=== PATIENT | male | born 1950 | race Caucasian/White ===

== ENCOUNTER 2016-02-24 03:41 | Emergency (ER) | payer MEDICARE, OTHER ==
[2016-02-24] MEDS ORDERED: Norepinephrine in D5W infusion 8,000 MCG/250 ML BAG IV SCH (04:00)
[2016-02-24] MEDS ORDERED: SODIUM BICARBONATE 150 MEQ in WATER 1,000 ML IV ONE (04:00)
[2016-02-24] MEDS ORDERED: LORAZEPAM 2 MG/ML VIAL ONE (04:15)
--- NOTE | 2016-02-24 04:29 | EDPRACDOC ---
- General Information Chief Complaint: Altered Mental Status Stated Complaint: CPR Time Seen by Provider: 02/24/16 04:26 Home Medications: Home Medications Budesonide/Formoterol Fumarate [Symbicort 160-4.5 Mcg Inhaler] 1 puff INH BID Carvedilol [Coreg] 25 mg PO BID 12/27/12 Magnesium Oxide [Mag-Ox] 400 mg PO BID 12/27/12 Multivit-Min/FA/Lycopene/Lut [Centrum Silver Tablet] 1 tab PO DAILY 12/27/12 Nitroglycerin [Nitrostat] 0.4 mg SL Q5MX3 PRN 12/27/12 Humkr-7-Rmbp Ethyl Esters [Lovaza ([place]-3 Acid Ethyl Esters)] 1,000 mg PO BID 12/27/12 Alprazolam [Xanax] 0.5 mg PO Q6H PRN 06/13/13 Amiodarone [Cordarone, Pacerone] 200 mg PO DAILY 06/13/13 Fenofibrate,Micronized [Lofibra] 134 mg PO DAILY 06/13/13 Insulin Detemir [Levemir] 55 units SQ BID 06/13/13 Isosorbide Mononitrate [Imdur] 60 mg PO DAILY 06/13/13 Metolazone [Zaroxolyn] 5 mg PO .Thursday07/12/13 POTASSIUM CHLORIDE Tablet [K-DUR 20 mEq Tablet*] 20 meq PO BID #60 tablet Acetaminophen Ex Str Tablet [TYLENOL EXTRA STRENGTH Tablet] 1,000 mg PO Q6H Insulin Aspart [Novolog] 0 units SQ .SSI 01/05/14 Levothyroxine Sodium [Synthroid] 75 mcg PO DAILY 01/05/14 Pantoprazole Sodium [Protonix] 40 mg PO BID #60 tab 01/11/14 Bupropion HCl [Wellbutrin Sr] 150 mg PO BID 04/18/15 Clopidogrel Bisulfate [Plavix] 75 mg PO DAILY 04/18/15 Gabapentin [Neurontin] 100 mg PO TID PRN 04/18/15 Ipratropium [Atrovent Hfa] 1 puff INH TID PRN 04/18/15 Tramadol HCl [Ultram] 50 mg PO Q8H PRN 04/18/15 Albuterol/Ipratropium Neb [Duoneb] 3 ml NEB Q6H #120 nebu 04/20/15 Furosemide [Lasix] 80 mg PO DAILY #60 tablet 04/20/15 Levofloxacin [Levaquin] 750 mg PO DAILY #5 tablet 04/20/15 Prednisone 10 mg PO DAILY #30 tab.ds.pk 04/20/15 Allergies/Adverse Reactions: Allergies Allergy/AdvReac Type Severity Reaction Status Date / Time No Known Allergies Allergy Verified 04/18/15 10:00 - 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 CON FUSED AND FELL. FOUND BLOOD SUGAR TO BE 40S. FAMILY TRIED TO GIVE ORANGE JUICE. WENT UNRESPONSIVE. FAMILY STARTED CPR. STENTS- LAST 2011 Symptoms began: Suddenly Duration: Since Onset Symptoms Currently: Reports: Still Present Altered Quality: Reports: Decreased Alertness Altered Severity: Reports: Severe, Unresponsive Relevant History: Reports: Diabetes, Hypoglycemia Prehospital: Reports: EMT Blood Glucose Result: 150 Other History: EMS GAVE D50 AND NOTED INCREASING BLOOD SUGAR. LOST PULSES AND GAVE EPINEPHRINE WITH CHEST COMPRESSIONS. ON ARRIVAL CONTINUED COMPRESSIONS WITH EPINEPHRINE AND AMPS OF BICARB ED Past Medical History - History Reviewed Yes Nurses notes reviewed and agree except as marked Travel Outside of [place] in the Last 3 Months?: No - Patient Medical History Neurological History: Denies: Myasthenia Gravis Cardiac History: Reports: Coronary Artery Disease, Hypertension, Congestive Heart Failure, Heart Attack (2), Cardiac Catheterization, Hypercholesterolemia, Valvular Heart Disease. Denies: Atrial Fibrillation, CABG, Pacemaker, Cardiomyopathy Respiratory History: Reports: COPD, Pneumonia, Emphysema. Denies: Asthma, Chronic Bronchitis, Pulmonary Embolism GI/ History: Reports: Renal Failure, Kidney Stones, Gastroesophageal Reflux. Denies: Renal Disease, Kidney (Renal Surgery), Urinary Tract Infection, Liver Failure, Ulcer, Pancreatitis Musculoskeletal History: Reports: Osteoarthritis. Denies: Arthritis, Gout, Rheumatoid Arthritis Psychological History: Reports: Depression, Anxiety. Denies: Schizophrenia, Bipolar Disorder, Substance Use Disorder Systemic History: Reports: Diabetes. Denies: Cancer, Anemia, Hyperthyroidism, Hypothyroidism, Lupus Surgical History: Reports: Cardiac Catheterization, Other (lower back). Denies : CABG, Hysterectomy, Angioplasty, Hernia Surgery, Tonsillectomy/Adnoidectomy - Family Medical History Reports: Hypertension, Diabetes, Cancer, Cardiac Disorders. Denies: Stroke - Social Medical History Smoking Status: Light tobacco smoker (less than 5/day) Social History: Denies: Substance Use Disorder EDM Review of Systems - Review of Systems ROS Unobtainable: Yes Review of systems cannot be obtained due to the patient's medical condition - Physical Exam Constitutional: Decreased Consciousness, Other (UNRESPONSIVE) Oriented to: Unable to Test Last recorded Vital Signs: Oxygen Pulse Oxygen Saturation O2 Device Oxygen Flow Rate Fraction of Inspired Oxygen ( FIO2) - HEENT Head: Normal Eye Exam: Other (PUPILS SLUGGISH AND DILATED, PROPTOSIS PRESENT) Oropharynx: Other (PATIENT HAS KURT AIRWAY THAT WAS LEAKING- ETT PLACED INSTEAD) Tympanic Membrane: Normal ENT EAC: Normal TMJ: Normal Nose: Bleeding Neck: Normal - Respiratory/Cardiovascular Respiratory: Diminished, Wheezes Cardiovascular: Other (PULSELESS ON ARIVAL) - GI Auscultation: Normal Palpation: Tense Tenderness: Other (DISTENDED) Rectal Exam: Normal - Bladder: Normal - Musculoskeletal Back: Normal Extremities: Other (COOL, MOTTLED) - Integumentary Skin: Cool, Mottling Lymphatics: Normal - Neurologic Memory Impaired: Unable to Test Motor Function: Unable to Test Cranial Nerve: Unable to Test Cerebellar: Unable to Test ED Procedures - Central Line Indication: Hypotension, No peripheral access Line Procedure: Betadine prep Equipment used during procedure: Hat and Mask, Sterile Gown, Sterile Gloves Line Lumen: triple Central Line Postion: femoral (L) Line Position approached and secured by standard fashion: sutured, good blood return Complications: none - Intubation Indication: Respiratory Insufficiency, Altered Mental Status, Airway Protection Intubation Date: 02/24/16 Time of Intubation: 04:00 Pre-oxygenation completed: Yes Number of Attempts: 1 Storcz Used: Yes Intubation Method: Oral Endotracheal Utilized: Mac4 Blade Tube Size (cm): 7.5 Position at Lip: 23 ETCO2 Detector Positive: Yes Breath Sounds after Intubation: equal Intubation Complications: no complications Post Intubation Procedure CXR ordered?: Yes - Differential Diagnosis Sepsis, Other (HYPERKALEMIA, UREMIA) - Re-evaluation Re-evaluation 1 Re-evaluation Time: 04:33 (PATIENT HAD SPONTANEOUS RETURN OF PULSE. B/P 160 SYTOLIC- UNRESPONSIVE) - Results 02/24/16 03:44 02/24/16 03:44 - EKG EKG #1 EKG Time: 03:57 -: Yes EKG interpreted by me Rate: bpm: 95 [place]: Normal Rhythm: Afib, PVCs Block: RBBB Hypertrophy: None ST: Normal ED Critical Care Note - Critical Care Note Total Time (mins): 90 - Departure Yes I personally saw and evaluated the patient. Disposition: Trans. to Other Hospital ([facility]) Condition: Critical Final Diagnosis: Metabolic acidosis, Cardiopulmonary arrest, Signs of return of spontaneous circulation Altered mental status Qualifiers: Altered mental status type: coma Coma depth: [place] coma 3-8 Coma timing: at arrival to emergency department Qualified Code(s): R40.2432 - [place] coma scale score 3-8, at arrival to emergency department Left upper lobe pneumonia Qualifiers: Pneumonia type: due to unspecified organism Qualified Code(s): J18.1 - Lobar pneumonia, unspecified organism Education/Counseling Given To: Patient Education/Counseling Given Regarding: Diagnosis, Treatment, Prognosis Referrals: None,No Provider [Primary Care Provider] - One Week Decision to Transfer Time: 05:15 - Physician Consulted Other Time Called: 05:15 Provider Called: DR HAYS (CCU AT [facility]- DO NOT COOL. 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
[2016-02-24 04:34] LABS: MPV 8.4 fL (7.4-10.4)
[2016-02-24 04:40] LABS: ALLEN'S TEST PASS
[2016-02-24 04:41] LABS: ABG Draw Site Right Radial
[2016-02-24] MEDS ORDERED: ALBUTEROL 0.083% 3 ML NEB NEB ONE (04:43)
[2016-02-24 04:44] LABS: PCO2 > 124.0 mmHg (35-45)
[2016-02-24 04:45] LABS: PARTIAL THROMB. TIME 37.1 SEC (22-35); PT-INR 1.1
[2016-02-24 04:46] LABS: MODE AC 14 RATE
[2016-02-24 04:48] LABS: BLOOD UREA NITROGEN 48 MG/DL (9-20); CALCIUM 9.5 MG/DL (8.4-10.2); CALCULATED OSMOLALITY 300 MOs/Kg (270-290); CHLORIDE 98 mEq/L (98-107); GLUCOSE 249 MG/DL (70-99); SODIUM LEVEL 145 mEq/L (137-146); TOTAL PROTEIN 7.9 G/DL (6.3-8.2)
[2016-02-24] MEDS ORDERED: ALBUTEROL 6.7 GM MDI INH ONE (04:53)
[2016-02-24 05:09] LABS: SEG NEUTROPHIL 46 % (45-76)
[2016-02-24 05:16] VITALS: BMI 27.7
--- NOTE | 2016-02-24 05:21 | DIRPT ---
CLINICAL DATA: CPR in progress. Endotracheal tube placement. Initial encounter. EXAM: PORTABLE CHEST 1 VIEW COMPARISON: Chest radiograph performed 10/23/2015 FINDINGS: The patient's endotracheal tube is seen ending 6 cm above the caprice. An enteric tube is noted extending below the diaphragm. Patchy left apical and bilateral central airspace opacity may reflect interstitial edema or possibly pneumonia. Underlying vascular congestion is noted. No definite pleural effusion or pneumothorax is seen. The cardiomediastinal silhouette is mildly enlarged. No acute osseous abnormalities are identified. IMPRESSION: 1. Endotracheal tube seen ending 6 cm above the caprice. 2. Patchy left apical and bilateral central airspace opacities may reflect interstitial edema or possibly pneumonia. Underlying vascular congestion and mild cardiomegaly. Electronically Signed By: Aravind Nesbitt M.D. On: 02/24/2016 05:18
[2016-02-24 06:24] LABS: ALLEN'S TEST PASS; BEb 4.7 (+/- 2); TCO2 39.6 MMOL/L (23-27)
[2016-02-24 06:26] LABS: ABG Draw Site Right Radial
[2016-02-24 06:28] LABS: MODE AC 20 RATE
[2016-02-24] MEDS ORDERED: LORAZEPAM 2 MG/ML VIAL IV ONE (06:30)
[2016-02-24] MEDS ORDERED: CEFTRIAXONE 1 GM in D5W 100 ML IV ONE (06:46)
[2016-02-24] MEDS ORDERED: AZITHROMYCIN 500 MG in D5W 250 ML IV ONE (06:46)
[2016-02-24] MEDS ORDERED: NS 1,000 ML IV ONE ×2 (06:46→07:46)
--- NOTE | 2016-02-24 07:44 | DIRPT ---
CLINICAL DATA: Acute onset of altered mental status. CPR in progress. Patient became unresponsive. Initial encounter. EXAM: CT HEAD WITHOUT CONTRAST TECHNIQUE: Contiguous axial images were obtained from the base of the skull through the vertex without intravenous contrast. COMPARISON: CT of the head performed 09/06/2013 FINDINGS: There is no evidence of acute infarction, mass lesion, or intra- or extra-axial hemorrhage on CT. The posterior fossa, including the cerebellum, brainstem and fourth ventricle, is within normal limits. The third and lateral ventricles, and basal ganglia are unremarkable in appearance. The cerebral hemispheres are symmetric in appearance, with grossly normal min-white differentiation. No mass effect or midline shift is seen. There is no evidence of fracture; visualized osseous structures are unremarkable in appearance. Mild bilateral proptosis is noted. There is opacification of the maxillary sinuses and sphenoid sinus. The frontal sinuses and mastoid air cells are well-aerated. No significant soft tissue abnormalities are seen. IMPRESSION: 1. No acute intracranial pathology seen on CT. 2. Mild bilateral proptosis noted. 3. Opacification of the maxillary sinuses and sphenoid sinus. Electronically Signed By: Aravind Nesbitt M.D. On: 02/24/2016 07:41
[2016-02-24 08:38] VITALS: BP 144/91; PULSE 85; TEMP 95.7
[2016-02-24] MEDS ORDERED: ATROPINE 1 MG/10 ML PFS IV ONE (10:00)
[2016-02-24] MEDS ORDERED: SODIUM BICARBONATE 50 MEQ/50 ML (8.4%) PFS IV ONE (10:00)
[2016-02-24] MEDS ORDERED: EPINEPHrine 1 MG/10 ML (1:10,000) SYR IV ONE (10:00)
== END 2016-02-24 08:30 | disposition short-term general hospital (02) ==
LOC: ED 03:41
DX: I46.9 Cardiac arrest, cause unspecified (principal); E87.2 Acidosis; J18.1 Lobar pneumonia, unspecified organism; R41.82 Altered mental status, unspecified; R40.2432 Glasgow coma scale score 3-8, at arrival to emergency department; E11.649 Type 2 diabetes mellitus with hypoglycemia without coma; K21.9 Gastro-esophageal reflux disease without esophagitis; J44.9 Chronic obstructive pulmonary disease, unspecified; I25.10 Atherosclerotic heart disease of native coronary artery without angina pectoris; I10 Essential (primary) hypertension; I50.9 Heart failure, unspecified; E78.00 Pure hypercholesterolemia, unspecified; F17.200 Nicotine dependence, unspecified, uncomplicated; Z79.4 Long term (current) use of insulin; Z79.899 Other long term (current) drug therapy
CPT/HCPCS: 31500; 36556; 36600; 70450; 71010; 80053; 82803; 82962; 83605; 83880; 84484; 85007; 85027; 85610; 85730; 87040; 92950; 93005; 94640; 96365; 96366; 96375; 99291; 99292; A4217; A9270; J0171; J0456; J0461; J0696; J2060; J3490; J7060; J7070; 99285